=== PATIENT | female | born 1990 | race Caucasian/White ===

== ENCOUNTER 2018-09-15 23:31 | Outpatient (CLI) | payer OTHER, BC | END 2018-09-16 01:18 | disposition home or self-care (01) | LOC: M LDO 23:31 | DX: O47.03 False labor before 37 completed weeks of gestation, third trimester (principal); Z3A.32 32 weeks gestation of pregnancy | CPT/HCPCS: 59025 ==

== ENCOUNTER 2025-09-27 11:28 | Emergency (ER) | payer OTHER ==
[~2025-09-27] VITALS: Ht 170.2 cm; Wt 80.1 kg
[~2025-09-27 11:28] MED LIST: PRENTAB74 PO
[2025-09-27 11:34] VITALS: BP 123/70; TEMP 98.1; O2SAT 100
[2025-09-27] MEDS ORDERED: CEPH500C PO (12:21)
== END 2025-09-27 12:35 | disposition home or self-care (01) ==
LOC: M ED 11:28
DX: L03.113 Cellulitis of right upper limb (principal); F17.210 Nicotine dependence, cigarettes, uncomplicated; Z88.6 Allergy status to analgesic agent; Z79.2 Long term (current) use of antibiotics